=== PATIENT | male | born 1965 | race African-American/Black ===

== ENCOUNTER 2022-01-23 09:30 | Inpatient (IN) ==
[2022-01-23 10:37] LABS: Basophils # 0.1 10*3/uL (0.0-0.2); Basophils % 0.8 % (0.0-0.8); Eosinophils # 0.2 10*3/uL (0.0-0.87); Eosinophils % 2.8 % (0.00-10.9); Hematocrit 50.6 VOL% (42.0-52.0); Hemoglobin 16.9 GM/DL (14.0-18.0); Immature Granulocytes % 0.2 %; Immature Granulocytes Absolute 0.01 #; Lymphocytes # 1.6 10*3/uL (1.4-4.0); Lymphocytes % 24.9 % (21.2-54.2); Mean Corpuscular HGB Conc 33.4 GM/DL (32-36); Mean Corpuscular Volume 90.8 FL (87-102); Mean Platelet Volume 10.1 FL (9.6-12.0); Monocytes # 0.5 10*3/uL (0.11-0.8); Monocytes % 8.4 % (1.7-12.7); Neutrophils % 62.9 % (38.7-73.9); Platelet Count 170 T/CUMM (130-400); Red Blood Count 5.57 MC/CUMM (3.8-5.5); Red Cell Distribution Width 13.2 % (9.3-17.3); White Blood Count 6.3 T/CUMM (4-12)
[2022-01-23] MEDS ORDERED: hydrALAZINE 20 MG/1 ML VIAL IV STA ×2 (11:00→12:07)
[2022-01-23 11:07] LABS: Mucus,Urine Occasional /LPF (Occasional); RBC,Urine 19 /HPF (0-4); Urine Appearance Clear (Clear); Urine Color Yellow (Yellow)
[2022-01-23 11:08] LABS: Bilirubin,Urine Negative (Negative); Blood, Urine Large mg/dL (Negative); Glucose,Urine (UA) Negative (Negative); Ketones,Urine Negative (Negative); Nitrite,Urine Negative (Negative); Protein,Urine 100 mg/dL (Negative); Urine Specific Gravity 1.025 (1.001-1.035)
[2022-01-23 11:12] LABS: Albumin 3.7 G/DL (3.4-5.0); Bilirubin,Total 0.8 MG/DL (0.20-1.00); Calcium 8.6 MG/DL (8.5-10.1); Osmolality,Calculated 279.4 MOS/KG (273-304); Potassium 3.5 MMOL/L (3.5-5.1); Thyroid Stimulating Hormone 1.02 uIU/ml (0.358-3.74)
[2022-01-23] MEDS ORDERED: GLUCAGON 1 MG VIAL IM PRN (12:17)
[2022-01-23] MEDS ORDERED: hydrALAZINE 20 MG/1 ML VIAL IV PRN (12:17)
[2022-01-23] MEDS ORDERED: DEXTROSE 10% 250 ML BAG IV PRN (12:17)
[2022-01-23] MEDS ORDERED: ACETAMINOPHEN 325 MG TABLET PO PRN (12:17)
[2022-01-23] MEDS ORDERED: ONDANSETRON 4 MG/2 ML VIAL IV PRN (12:17)
[2022-01-23] MEDS ORDERED: ASPIRIN 325 MG TABLET PO SCH (12:30)
[2022-01-23] MEDS ORDERED: ENOXAPARIN 40 MG/0.4 ML SYRINGE SUBCUT SCH (12:30)
[2022-01-23 12:46] LABS: PT Patient Result 11.3 SECS (10.5-12.0)
[2022-01-23] MEDS ORDERED: NICOTINE 21 MG/24 HR PATCH TRANSDERM PRN (12:47)
[2022-01-23] MEDS ORDERED: amLODIPine 5 MG TABLET PO ONE (12:48)
[2022-01-23] MEDS: HEPARIN DRIP 25,000 UNITS/500 ML PREMIX IV SCH (18:50)
[2022-01-23] MEDS: DESVENLAFAXINE 50 MG TABLET PO SCH (21:10)
[2022-01-23] MEDS: ROSUVASTATIN 20 MG TABLET PO SCH (21:10)
[2022-01-24 00:28] LABS: Basophils # 0.1 10*3/uL (0.0-0.2); Basophils % 0.7 % (0.0-0.8); Eosinophils # 0.3 10*3/uL (0.0-0.87); Eosinophils % 2.8 % (0.00-10.9); Hematocrit 50.3 VOL% (42.0-52.0); Hemoglobin 17.3 GM/DL (14.0-18.0); Immature Granulocytes % 0.9 %; Immature Granulocytes Absolute 0.09 #; Lymphocytes # 2.9 10*3/uL (1.4-4.0); Lymphocytes % 29.6 % (21.2-54.2); Mean Corpuscular HGB Conc 34.4 GM/DL (32-36); Mean Corpuscular Volume 90.3 FL (87-102); Mean Platelet Volume 9.9 FL (9.6-12.0); Monocytes # 0.8 10*3/uL (0.11-0.8); Monocytes % 8.5 % (1.7-12.7); Neutrophils % 57.5 % (38.7-73.9); Platelet Count 184 T/CUMM (130-400); Red Blood Count 5.57 MC/CUMM (3.8-5.5); Red Cell Distribution Width 13.2 % (9.3-17.3); White Blood Count 9.6 T/CUMM (4-12)
[2022-01-24 00:43] LABS: Albumin 3.6 G/DL (3.4-5.0); Bilirubin,Total 1.1 MG/DL (0.20-1.00); Calcium 8.7 MG/DL (8.5-10.1); Osmolality,Calculated 278.5 MOS/KG (273-304); Potassium 3.3 MMOL/L (3.5-5.1); Risk Ratio 5.14; Total Protein 7.4 G/DL (6.4-8.2)
[2022-01-24] MEDS ORDERED: LOSARTAN 50 MG TABLET PO SCH (09:00)
[2022-01-24] MEDS: TAMSULOSIN 0.4 MG CAPSULE PO SCH (10:14)
[2022-01-24] MEDS: PANTOPRAZOLE 40 MG TABLET PO SCH (10:14)
[2022-01-24] MEDS: CHOLECALCIFEROL 1,000 UNIT TABLET PO SCH (10:14)
[2022-01-24] MEDS ORDERED: LOSARTAN 50 MG TABLET PO ONE (14:55)
[2022-01-24] MEDS: HEPARIN DRIP 25,000 UNITS/500 ML PREMIX IV SCH (17:18)
[2022-01-24] MEDS: ROSUVASTATIN 20 MG TABLET PO SCH (21:10)
[2022-01-24] MEDS: DESVENLAFAXINE 50 MG TABLET PO SCH (21:10)
[2022-01-25 05:28] LABS: Osmolality,Calculated 275.5 MOS/KG (273-304); Potassium 4.1 MMOL/L (3.5-5.1)
[2022-01-25 05:47] LABS: Basophils # 0.1 10*3/uL (0.0-0.2); Basophils % 0.7 % (0.0-0.8); Eosinophils # 0.2 10*3/uL (0.0-0.87); Eosinophils % 2.7 % (0.00-10.9); Hemoglobin 17.4 GM/DL (14.0-18.0); Immature Granulocytes % 0.2 %; Immature Granulocytes Absolute 0.02 #; Lymphocytes # 2.1 10*3/uL (1.4-4.0); Lymphocytes % 23.2 % (21.2-54.2); Mean Corpuscular HGB Conc 34.1 GM/DL (32-36); Mean Corpuscular Volume 91.6 FL (87-102); Mean Platelet Volume 10.4 FL (9.6-12.0); Monocytes # 0.9 10*3/uL (0.11-0.8); Monocytes % 9.6 % (1.7-12.7); Neutrophils % 63.6 % (38.7-73.9); Platelet Count 174 T/CUMM (130-400); Red Blood Count 5.57 MC/CUMM (3.8-5.5); Red Cell Distribution Width 13.3 % (9.3-17.3); White Blood Count 8.8 T/CUMM (4-12)
[2022-01-25] MEDS: PANTOPRAZOLE 40 MG TABLET PO SCH (09:11)
[2022-01-25] MEDS: CHOLECALCIFEROL 1,000 UNIT TABLET PO SCH (09:11)
[2022-01-25] MEDS: TAMSULOSIN 0.4 MG CAPSULE PO SCH (09:11)
[2022-01-25] MEDS: LOSARTAN 50 MG TABLET PO SCH (09:11)
[2022-01-25] MEDS: RIVAROXABAN 20 MG TABLET PO SCH (09:11)
[2022-01-25] MEDS ORDERED: ERGOCALCIFEROL 50,000 UNIT CAPSULE PO SCH (11:00)
[2022-01-25] MEDS: DESVENLAFAXINE 50 MG TABLET PO SCH (20:55)
[2022-01-25] MEDS: ROSUVASTATIN 20 MG TABLET PO SCH (20:55)
[2022-01-26 05:29] LABS: Basophils % 0.4 % (0.0-0.8); Eosinophils # 0.3 10*3/uL (0.0-0.87); Eosinophils % 3.1 % (0.00-10.9); Hematocrit 51.3 VOL% (42.0-52.0); Hemoglobin 17.2 GM/DL (14.0-18.0); Immature Granulocytes % 0.3 %; Immature Granulocytes Absolute 0.03 #; Lymphocytes # 1.8 10*3/uL (1.4-4.0); Lymphocytes % 19.5 % (21.2-54.2); Mean Corpuscular HGB Conc 33.5 GM/DL (32-36); Mean Corpuscular Volume 91.3 FL (87-102); Mean Platelet Volume 10.2 FL (9.6-12.0); Monocytes # 0.8 10*3/uL (0.11-0.8); Monocytes % 8.5 % (1.7-12.7); Neutrophils % 68.2 % (38.7-73.9); Platelet Count 171 T/CUMM (130-400); Red Blood Count 5.62 MC/CUMM (3.8-5.5); Red Cell Distribution Width 13.2 % (9.3-17.3); White Blood Count 9.1 T/CUMM (4-12)
[2022-01-26 05:51] LABS: Calcium 9.2 MG/DL (8.5-10.1); Osmolality,Calculated 278.5 MOS/KG (273-304); Potassium 3.4 MMOL/L (3.5-5.1)
[2022-01-26] MEDS: RIVAROXABAN 20 MG TABLET PO SCH (08:10)
[2022-01-26] MEDS: LOSARTAN 50 MG TABLET PO SCH (08:11)
[2022-01-26] MEDS: TAMSULOSIN 0.4 MG CAPSULE PO SCH (08:11)
[2022-01-26] MEDS: PANTOPRAZOLE 40 MG TABLET PO SCH (08:12)
[2022-01-26] MEDS ORDERED: POTASSIUM CHLORIDE 20 MEQ TABLET PO ONE (08:35)
[2022-01-26] MEDS ORDERED: amLODIPine 5 MG TABLET PO SCH (09:00)
[2022-01-26] MEDS ORDERED: BISACODYL 10 MG SUPP RECTAL ONE (13:09)
[2022-01-26] MEDS ORDERED: MAGNESIUM HYDROXIDE SUSP 30 ML UDCUP PO ONE (14:15)
[2022-01-26 16:43] VITALS: BP 148/96
== END 2022-01-26 18:16 | DRG 66 ==
LOC: N.ED 09:30 → N.EDINP 12:17 → SUATTDRO 12:17 → N.3E 14:27
PROVIDERS: ADMIT Internal Medicine; ATTEND Internal Medicine